=== PATIENT | male | born 1980 | race African-American/Black ===

== ENCOUNTER 2022-06-24 11:04 | Emergency (ER) | payer OTHER ==
[2022-06-24 11:19] VITALS: BP 122/72; PULSE 76; RESP 18; TEMP 98; BMI 47.5
[2022-06-24] MEDS ORDERED: IBUPROFEN 400 MG TABLET (FP) PO ONE ×2 (11:33→11:49)
[2022-06-24] MEDS ORDERED: ACETAMINOPHEN 500 MG TABLET (FP) PO ONE (12:59)
[2022-06-24] MEDS ORDERED: ACETAMINOPHEN 500 MG TABLET (FP) ONE (13:10)
== END 2022-06-24 14:28 | disposition home or self-care (01) ==
LOC: JERFT 11:04 → JER 11:04
PROC: 2W3GX1Z Immobilization of Right Thumb using Splint (ICD-10-PCS; principal; 2022-06-24)
DX: S62.001A Unspecified fracture of navicular [scaphoid] bone of right wrist, initial encounter for closed fracture (principal); S52.611A Displaced fracture of right ulna styloid process, initial encounter for closed fracture; Y09 Assault by unspecified means
CPT/HCPCS: 73090-TC-RT-FY; 73110-TC-RT-FY; 73130-TC-RT-FY; 99284-25

== ENCOUNTER 2022-06-25 10:58 | Emergency (ER) | payer OTHER ==
[2022-06-25 11:02] VITALS: PULSE 85; RESP 18; TEMP 97; BMI 39.5
[2022-06-25 11:54] VITALS: BP 105/67
== END 2022-06-25 11:48 | disposition home or self-care (01) ==
LOC: JERFT 10:58
DX: S62.101A Fracture of unspecified carpal bone, right wrist, initial encounter for closed fracture (principal); M25.531 Pain in right wrist; X58.XXXA Exposure to other specified factors, initial encounter
CPT/HCPCS: 99283-25

== ENCOUNTER 2022-09-20 06:31 | Day surgery (SDC) | payer OTHER ==
[2022-09-14 11:52] VITALS: BMI 40.4
[2022-09-20] MEDS ORDERED: MIDAZOLAM HCL 2 MG/2 ML SINGLE DOSE VIAL ONE (09:09)
[2022-09-20] MEDS ORDERED: LIDOCAINE 1% P/F 10 MG/ML VIAL ONE (09:13)
[2022-09-20] MEDS ORDERED: ROPIVACAINE HCL 0.5% 30ML VIAL ONE (09:13)
[2022-09-20] MEDS ORDERED: PROPOFOL 20 ML ONE ×7 (09:40→11:07)
[2022-09-20] MEDS ORDERED: oxyCODONE HCL 5 MG TABLET PO PRN (11:52)
[2022-09-20] MEDS ORDERED: ONDANSETRON 4 MG/2 ML VIAL IVPUSH PRN (11:52)
[2022-09-20] MEDS ORDERED: ACETAMINOPHEN INJECTION 100 ML IVPB ONE (11:54)
[2022-09-20] MEDS ORDERED: FENTANYL CITRATE/PF 50 MCG/ML VIAL ONE (11:54)
[2022-09-20 13:10] VITALS: TEMP 97.1
[2022-09-20 13:15] VITALS: BP 134/89; PULSE 67; RESP 18
[2022-09-20] MEDS ORDERED: ACETAMINOPHEN 1000 MG/100 ML BAG IVPB ONE (13:49)
== END 2022-09-20 13:25 | disposition home or self-care (01) ==
LOC: FASU 06:31
PROVIDERS: ATTEND Orthopaedic Surgery Hand Surgery
PROC: 0PHM04Z Insertion of Internal Fixation Device into Right Carpal, Open Approach (ICD-10-PCS; principal; 2022-09-20 09:56)
PROC: 0RQN0ZZ Repair Right Wrist Joint, Open Approach (ICD-10-PCS; 2022-09-20 09:56)
DX: S62.021K Displaced fracture of middle third of navicular [scaphoid] bone of right wrist, subsequent encounter for fracture with nonunion (principal); X58.XXXD Exposure to other specified factors, subsequent encounter
CPT/HCPCS: 73110-TC-RT-FY; 73130-TC-RT-FY; 82962; 94760; C1713

== ENCOUNTER 2023-07-23 18:34 | Inpatient (IN) | payer OTHER ==
[2023-07-23 18:51] VITALS: BMI 35.4
[2023-07-23] MEDS ORDERED: ALBUTEROL SO4 2.5/IPRATROPIUM 0.5 INH SOL 3 ML VIAL.NEB. NEB ONE (20:11)
[2023-07-23] MEDS ORDERED: LORATADINE 10 MG TABLET ONE (20:11)
[2023-07-23] MEDS ORDERED: ASPIRIN 81 MG CHEWABLE TABLETS ONE ×2 (20:11→21:45)
[2023-07-23] MEDS: ASPIRIN 81 MG CHEWABLE TABLETS PO ONE ×2 (20:18→21:48)
[2023-07-23] MEDS: LORATADINE 10 MG TABLET PO ONE (20:18)
[2023-07-23] MEDS: ALBUTEROL SO4 2.5/IPRATROPIUM 0.5 INH SOL 3 ML VIAL.NEB. NEB ONE (20:31)
[2023-07-23] MEDS ORDERED: ACETAMINOPHEN 325 MG TABLET (FP) ONE (20:33)
[2023-07-23] MEDS: ACETAMINOPHEN 325 MG TABLET (FP) PO ONE (20:35)
[2023-07-23 20:37] LABS: BASO % 1.5 % (0-2.0); EOS % 4.1 % (0-4.5); HEMATOCRIT 41.5 % (35.4-49); HEMOGLOBIN 14.1 GM/dL (11.7-16.9); LYMPH % 46.6 % (8-40); MCH 33.2 pg (25.7-33.7); MEAN CELL VOLUME 97.6 fl (80-96); MEAN PLT VOLUME 7.7 fl (7.5-11.1); MONO % 10.6 % (3.8-10.2); NEUT % 37.2 % (42.8-82.8); PLATELET COUNT 249 10^3/uL (134-434); RBC 4.25 M/mm3 (4.00-5.60); RDW 14.2 % (11.9-15.9); WHITE BLOOD COUNT 6.1 K/mm3 (4.0-10.0)
[2023-07-23 20:45] LABS: INR 0.97 (0.83-1.09); PROTHROMBIN TIME (PATIENT) 11.2 SEC (9.7-13.0)
[2023-07-23 20:48] LABS: ACTIVATED PTT 33.1 SECONDS (25.2-36.5)
[2023-07-23 20:54] LABS: CALCIUM 9.2 mg/dL (8.5-10.1)
[2023-07-23 20:55] LABS: ALBUMIN 3.8 g/dl (3.4-5.0); MAGNESIUM 2.3 mg/dL (1.8-2.4)
[2023-07-23 20:58] LABS: CREATININE 1.3 mg/dL (0.55-1.3)
[2023-07-23 21:00] LABS: BILIRUBIN,TOTAL 0.2 mg/dL (0.2-1)
[2023-07-23 22:47] LABS: N-TERMINAL BNP 125.2 pg/ml (5-125)
[2023-07-24] MEDS: methylPREDNISolone NA SUCC 40 MG/1 ML VIAL IVPUSH SCH (00:34)
[2023-07-24] MEDS: guaiFENesin 200 MG/10 ML 10 ML UNIT-DOSE CUPS PO ONE (06:11)
[2023-07-24 06:12] VITALS: BP 129/79; PULSE 72; RESP 18; TEMP 98.1
[2023-07-24 06:13] LABS: BASO % 1.1 % (0-2.0); HEMATOCRIT 43.2 % (35.4-49); HEMOGLOBIN 14.9 GM/dL (11.7-16.9); MCH 33.8 pg (25.7-33.7); MCHC 34.4 g/dl (32.0-35.9); MEAN CELL VOLUME 98.2 fl (80-96); MEAN PLT VOLUME 8.1 fl (7.5-11.1); MONO % 3.8 % (3.8-10.2); NEUT % 66.1 % (42.8-82.8); PLATELET COUNT 269 10^3/uL (134-434); RDW 13.9 % (11.9-15.9); WHITE BLOOD COUNT 4.2 K/mm3 (4.0-10.0)
[2023-07-24 06:30] LABS: POTASSIUM 4.2 mmol/L (3.5-5.1)
[2023-07-24 06:32] LABS: ALBUMIN 3.9 g/dl (3.4-5.0); BLOOD UREA NITROGEN 12.7 mg/dL (7-18)
[2023-07-24 06:34] LABS: CALCIUM 9.7 mg/dL (8.5-10.1)
[2023-07-24 06:36] LABS: PHOSPHOROUS 2.5 mg/dL (2.5-4.9)
[2023-07-24 06:37] LABS: CREATININE 1.2 mg/dL (0.55-1.3)
[2023-07-24 06:38] LABS: BILIRUBIN,TOTAL 0.3 mg/dL (0.2-1); TOT PROT 7.4 g/dl (6.4-8.2)
[2023-07-24 06:39] LABS: MAGNESIUM 2.3 mg/dL (1.8-2.4)
[2023-07-24] MEDS: PALIPERIDONE PALMITATE 234 MG/1.5 ML IM SCH (06:40)
[2023-07-24] MEDS ORDERED: INSULIN ASPART SLIDING SCALE (NOVOLOG) 1 VIAL SQ SCH (07:00)
[2023-07-24] MEDS ORDERED: ALBUTEROL SO4 2.5/IPRATROPIUM 0.5 INH SOL 3 ML VIAL.NEB. NEB SCH (10:00)
[2023-07-24] MEDS ORDERED: LOSARTAN POTASSIUM 50 MG TABLET PO SCH (10:00)
[2023-07-24] MEDS ORDERED: GABAPENTIN 400 MG CAPSULE PO SCH (10:00)
[2023-07-24] MEDS ORDERED: ENOXAPARIN NA (PORCINE) 40 MG/0.4 ML DISP.SYRIN SQ SCH (10:00)
[2023-07-24] MEDS ORDERED: VENLAFAXINE HCL 75 MG E.R. CAPSULES PO SCH (10:00)
[2023-07-24] MEDS ORDERED: PRAZOSIN HCL 5 MG CAPSULE PO SCH (22:00)
[2023-07-24] MEDS ORDERED: ATORVASTATIN CA 10 MG TABLET (FP) PO SCH (22:00)
[2023-07-24] MEDS ORDERED: QUEtiapine FUMARATE 50 MG TABLET PO SCH (22:00)
[2023-07-24] MEDS ORDERED: VALPROATE SODIUM 250 MG/5 ML UNIT DOSE CUP PO SCH (22:00)
== END 2023-07-24 06:38 | disposition left against medical advice (07) | DRG 141 ==
LOC: JER 18:34 → JERBED 07-24 00:11 → OBSVTOIN 07-24 00:39
PROVIDERS: ADMIT Internal Medicine; ATTEND Internal Medicine
DX: J45.901 Unspecified asthma with (acute) exacerbation (principal); I10 Essential (primary) hypertension; E78.5 Hyperlipidemia, unspecified; F25.9 Schizoaffective disorder, unspecified; R05.9 Cough, unspecified; R07.89 Other chest pain
CPT/HCPCS: 0241U-QW; 36415; 71045-TC-FY; 80053; 80061; 82550; 82553; 83735; 83880; 84100; 84484; 85025; 85379; 85610; 85730; 93005; 93010; 99285-25; G0378

== ENCOUNTER 2024-11-09 17:33 | Observation (INO) | payer OTHER ==
[2024-11-09] MEDS: SODIUM CHLORIDE 0.9% 500 ML INFUS.BAG IV ONE (19:15)
[2024-11-09 19:42] LABS: MCHC 33.0 g/dl (32.3-36.5); MEAN CELL VOLUME 95.1 fl (79.0-92.2); MEAN PLT VOLUME 9.1 fl (9.4-12.4); RDW 12.4 % (12.1-15.9)
[2024-11-09 20:24] LABS: TOT PROT 7.0 g/dl (6.4-8.2)
[2024-11-09 20:25] LABS: CO2 23.0 mmol/L (21-32)
[2024-11-09 20:26] LABS: ALK PHOS 61.0 U/L (40-150)
[2024-11-09 20:29] LABS: SGOT/AST 19.0 U/L (5-34); SGPT/ALT 13.0 U/L (0-55)
[2024-11-09 21:03] LABS: GLUCOSE,RANDOM 92.0 mg/dL (74-106)
[2024-11-09 21:14] LABS: CREATININE 1.34 mg/dL (0.55-1.3)
[2024-11-09 22:21] LABS: COCAINE, UR POSITIVE (NEGATIVE)
[2024-11-09 22:22] LABS: PHENCYCLIDINE,URINE NEGATIVE (NEGATIVE); URINE AMPHETAMINES NEGATIVE (NEGATIVE); URINE BARBITURATES NEGATIVE (NEGATIVE); URINE BENZODIAZEPINES NEGATIVE (NEGATIVE)
[2024-11-09 22:23] LABS: METHADONE, UR NEGATIVE (NEGATIVE)
[2024-11-09 22:46] LABS: OPIATES, URI NEGATIVE (NEGATIVE)
[2024-11-09 23:32] VITALS: BMI 31.0
[2024-11-10 03:57] VITALS: RESP 18
[2024-11-10 06:40] LABS: ABSOLUTE IMMATURE GRANULOCYTES 0.03 x10^3/uL (0.0-0.031); BASOPHILS # 0.07 x10^3/uL (0.01-0.08); EOSINOPHIL % 1.9 % (0.8-7.0); EOSINOPHILS # 0.14 x10^3/uL (0.04-0.54); MCHC 32.3 g/dl (32.3-36.5); MEAN CELL VOLUME 95.8 fl (79.0-92.2); MEAN PLT VOLUME 9.6 fl (9.4-12.4); MONOCYTE # 0.78 x10^3/uL (0.30-0.82); MONOCYTE % 10.6 % (5.3-12.2); RDW 12.7 % (12.1-15.9)
[2024-11-10 06:55] LABS: GLUCOSE,RANDOM 81.0 mg/dL (74-106)
[2024-11-10 06:56] LABS: TOT PROT 6.2 g/dl (6.4-8.2)
[2024-11-10 06:57] LABS: CO2 23.0 mmol/L (21-32)
[2024-11-10 06:59] LABS: ALK PHOS 54.0 U/L (40-150)
[2024-11-10 07:01] LABS: SGOT/AST 16.0 U/L (5-34); SGPT/ALT 10.0 U/L (0-55)
[2024-11-10 07:02] LABS: CREATININE 1.33 mg/dL (0.55-1.3)
[2024-11-10 07:26] LABS: HCV DIAGNOSTIC IN-HOUSE W/RFLX NON-REACTIVE (NONREACTIVE); HIV INTERPRETATION NEGATIVE (NEGATIVE)
[2024-11-10] MEDS: ENOXAPARIN NA (PORCINE) 40 MG/0.4 ML DISP.SYRIN SQ SCH (09:20)
[2024-11-10] MEDS: VENLAFAXINE HCL 75 MG E.R. CAPSULES PO SCH (09:20)
[2024-11-10 15:14] VITALS: BP 116/67; PULSE 61; TEMP 97.8
[2024-11-10] MEDS ORDERED: VALPROATE SODIUM 250 MG/5 ML UNIT DOSE CUP PO SCH (22:00)
== END 2024-11-10 16:27 | disposition home or self-care (01) ==
LOC: JER 17:33 → JERBED 18:28 → J2W 23:04
PROVIDERS: ADMIT Internal Medicine; ATTEND Nurse Practitioner Family
PROC: 3E0337Z Introduction of Electrolytic and Water Balance Substance into Peripheral Vein, Percutaneous Approach (ICD-10-PCS; principal; 2024-11-09)
DX: R55 Syncope and collapse (principal); F12.90 Cannabis use, unspecified, uncomplicated; F14.90 Cocaine use, unspecified, uncomplicated; E11.9 Type 2 diabetes mellitus without complications; I10 Essential (primary) hypertension; E78.5 Hyperlipidemia, unspecified; F20.9 Schizophrenia, unspecified
CPT/HCPCS: 36415; 70450-TC; 71045-TC-FY; 80053; 80307; 82550; 82962; 83036; 83605; 83735; 84100; 84484; 85025; 85027; 86803; 87389; 93005; 93010; 93306-TC; 97116-GP; 97162-GP; 99285-25; G0378